=== PATIENT | female | born 1995 | race Caucasian/White ===

== ENCOUNTER → 2024-01-21 13:06 | Outpatient (CLI) | payer OTHER, MEDICAID, SELFPAY ==
--- NOTE | 2024-01-21 13:10 | DI.US.S_ITS ---
PROCEDURE: US OB LIMITED INDICATIONS: SIZE GREATER THAN DATES OUTSIDE/PRIOR DATING DATA: Last menstrual period (LMP): Not provided. First dating scan (date and location): 09/11/2023. Estimated date of delivery (MARTINA) from first dating scan: 02/03/2024. TECHNIQUE: Real-time scanning was performed of the fetus, with image documentation. And biometric measurements COMPARISON: [facility], , OB BIOPHYSICAL PROFILE, 01/07/2024, 17:27. FINDINGS: A single living intrauterine gestation is present. Presentation: Vertex. Placenta: Placental position is posterior, without previa. Amniotic fluid index: 12.6 cm, normal range is 5-24 cm. Single deepest vertical pocket is 5.9 cm. heart rate: 140 beats per minute. Clinically estimated gestational age: 38 weeks and 1 day BPD is 9.7 cm, 39 weeks and 6 days Head circumference is 34.3 cm, 39 weeks and 4 days Abdominal circumference is 37.6 cm, 41 weeks and 4 days This is over the 99th percentile Femur length is 7 cm, 36 weeks and 1 day Estimated gestational age from initial scan: 39 weeks and 2 days. Probable marginal cord origin not well seen on today's study due to positioning. EFW is 3984g, at the 96 percentile IMPRESSION: EFW is 3984g, at the 96 percentile, driven primarily by the large abdominal circumference. Normal fluid. Vertex positioning. Marginal cord origin not well seen on today's study due to positioning. Dictated by: Laz Martinez M.D. on 01/21/2024 at 16:49 Approved by: Laz Martinez M.D. on 01/21/2024 at 16:52
== END ==
PROVIDERS: PCP Family Medicine; Referring Provider Family Medicine; Visit Provider Family Medicine
DX: O26.843 Uterine size-date discrepancy, third trimester (principal); Z3A.39 39 weeks gestation of pregnancy
CPT/HCPCS: 76815